=== PATIENT | female | born 1975 | race Hispanic/Latino ===

== ENCOUNTER 2023-02-24 05:22 | Emergency (ER) | payer OTHER, SELFPAY ==
[~2023-02-24] VITALS: Ht 152.4 cm; Wt 66.8 kg
[2023-02-24] MEDS ORDERED: ACET-683 PO (05:34)
[2023-02-24 06:42] LABS: RSV AMPLIFICATION NEGATIVE (NEGATIVE)
[2023-02-24] MEDS ORDERED: IBUP-1022 PO (07:28)
[2023-02-24] MEDS ORDERED: ACET325C5 PO (07:28)
[2023-02-24 07:29] VITALS: BP 98/56; TEMP 100.3; O2SAT 97
== END 2023-02-24 07:25 | disposition home or self-care (01) ==
LOC: M ED 05:22
DX: U07.1 COVID-19 (principal); Z79.1 Long term (current) use of non-steroidal anti-inflammatories (NSAID)